=== PATIENT | female | born 1950 | race Caucasian/White ===

== ENCOUNTER 2019-06-19 18:05 | Emergency (ER) | payer BC ==
--- NOTE | 2019-06-19 18:13 | Emergency Department Record ---
History of Present Illness - General Stated Complaint: DIZZY,SHAKEY HEART CONDITION Time Seen by Provider: 06/19/19 18:06 Source: Patient Mode of Arrival: Ambulatory Limitations: No limitations - History of Present Illness Initial Comments: 68 yo female presents to ED for evaluation of feeling dizzy, lightheaded, weak all over. Patient report that her symptoms occurred just prior to arrival, reports similar symptoms with atrial fibrillation as well as intermittent hypoglycemic episodes, denies history of DM. Patient reports that she has not eaten much today, but did eat a candy bar just prior to arrival. Patient denies chest pain, difficulty in breathing, fevers, chills, or recent illness. MD Complaint: Dizziness Onset/Timin -: Minutes(s) Timing: Unsure Description: Sense of movement History of Same: Yes History of Trauma: Yes Severity: Moderate Improves With: Nothing Worsens With: Nothing Associated Symptoms: Denies other symptoms - [place] Coma Scale Eye Response: (4) Open spontaneously Motor Response: (6) Obeys commands Verbal Response: (5) Oriented [place] Total: 15 - Related Data Home Medications Medication Instructions Recorded Confirmed Last Taken Diphenhydramine HCl [Benadryl] 25 mg PO ASDIR PRN 06/19/19 06/19/19 Unknown Levothyroxine Sodium 50 mcg PO DAILY 06/19/19 06/19/19 06/19/19 Prednisone [Prednisone 1Mg] 1 mg PO DAILY 06/19/19 06/19/19 06/19/19 Allergies Allergy/AdvReac Type Severity Reaction Status Date / Time acetaminophen [From Vicodin] Allergy ANAPHYLAXIS Verified 06/19/19 18:35 clarithromycin [From Biaxin] Allergy PT UNSURE Verified 06/19/19 18:35 OF REACTION hydrocodone [From Vicodin] Allergy ANAPHYLAXIS Verified 06/19/19 18:35 insect venom Allergy ANAPHYLAXIS Verified 06/19/19 18:35 Iodinated Contrast Media Allergy ANAPHYLAXIS Verified 06/19/19 18:35 Latex, Natural Rubber Allergy ANAPHYLAXIS Verified 06/19/19 18:35 moxifloxacin [From Vigamox] Allergy ANAPHYLAXIS Verified 06/19/19 18:35 Penicillins Allergy RASH Verified 06/19/19 18:35 prochlorperazine Allergy ANAPHYLAXIS Verified 06/19/19 18:35 [From Compazine] shellfish derived Allergy ANAPHYLAXIS Verified 06/19/19 18:35 aspirin AdvReac HYPERSENSIT Verified 06/19/19 18:35 IVITY Beta-Blockers AdvReac PT UNSURE Verified 06/19/19 18:35 (Beta-Adrenergic Bloc OF REACTION naproxen AdvReac HYPERSENSIT Verified 06/19/19 18:35 IVITY warfarin AdvReac HYPERSENSIT Verified 06/19/19 18:35 IVITY Review of Systems Constitutional: Denies: Chills, Fever, Malaise, Night sweats Eyes: Denies: Eye discharge, Eye pain ENT: Denies: Congestion, Ear pain, Epistaxis Respiratory: Denies: Cough, Dyspnea Cardiovascular: Denies: Chest pain, Dyspnea on exertion, Edema Endocrine: Denies: Fatigue, Heat or cold intolerance Gastrointestinal: Denies: Abdominal pain, Nausea, Vomiting Genitourinary: Denies: Incontinence, Retention Musculoskeletal: Denies: Arthralgia, Back pain Skin: Denies: Bruising, Change in color Neurological: Reports: Vertigo. Denies: Abnormal gait, Confusion, Headache, Numbness, Tingling, Tremors Psychiatric: Denies: Anxiety Hematological/Lymphatic: Denies: Anemia, Blood Clots Physical Exam - General General Appearance: Alert, Oriented x3, Cooperative, Mild distress, Anxious Limitations: No limitations - Head Head exam: Atraumatic, Normocephalic, Normal inspection Head exam detail: negative: Abrasion, Contusion, Vargas's sign, General tenderness, Hematoma, Laceration - Eye Eye exam: Normal appearance. negative: Conjunctival injection, Periorbital swelling, Periorbital tenderness, Scleral icterus - ENT Ear exam: negative: Auricular hematoma, Auricular trauma Nasal Exam: negative: Active bleeding, Discharge, Dried blood, Foreign body Mouth exam: negative: Drooling, Laceration, Muffled voice, Tongue elevation - Neck Neck exam: Normal inspection. negative: Meningismus, Tenderness - Respiratory Respiratory exam: Normal lung sounds bilaterally. negative: Respiratory distress, Rhonchi, Stridor, Wheezes - Cardiovascular Cardiovascular Exam: Normal rhythm, Normal heart sounds, Tachycardia - GI/Abdominal GI/Abdominal exam: Soft. negative: Rebound, Rigid, Tenderness - Rectal Rectal exam: Deferred - exam: Deferred - Extremities Extremities exam: Normal inspection. negative: Pedal edema, Tenderness - Back Back exam: Denies: CVA tenderness (R), CVA tenderness (L) - Neurological Neurological exam: Alert, Normal gait, Oriented X3 - Psychiatric Psychiatric exam: Normal affect, Normal mood - Skin Skin exam: Normal color. negative: Abrasion Type of lesion: negative: abrasion Course - Reevaluation(s) Reevaluation #1: 06/19/19 18:12 EKG: Diffuse artifact present, Sinus tachycardia 109 Normal axis, normal intervals No acute ST-T wave changes present. Reevaluation #2: 06/19/19 18:41 Laboratory studies were reviewed and appear grossly unremarkable for an acute process. 06/19/19 19:27 Patient was reassessed and updated on all results. Pulse now in the 60's, reports that she is feeling much better. 500 mL D5 1/2 NS infusing currently for possible hypoglycemia. Will reassess when infusion has completed. Reevaluation #3: 06/19/19 20:26 Patient was reassessed and reports that she is feeling back to her baseline. Patient reports that her symptoms are likely the result of hypoglycemia. Patient's symptoms have resolved, and the patient appears stable for discharge at this time. Medical Decision Making - Lab Data Result diagrams: 06/19/19 18:10 06/19/19 18:10 Disposition Disposition: Discharge Clinical Impression: Hypoglycemic reaction Disposition: Home, Self-Care Condition: (2) Stable Instructions: Non-diabetic Hypoglycemia (ED) Additional Instructions: Return to ED if your symptoms worsen or if you have any concerns. Follow-up with your family doctor in 3-5 days as directed. Time of Disposition: 20:27 Quality - Quality Measures Quality Measures: N/A - Blood Pressure Screening Does Patient Have Any of the Following: Active Dx of HTN Blood Pressure Classification: Hypertensive Reading Systolic Measurement: 167 Diastolic Measurement: 95 Screening for High Blood Pressure: Patient Exclusion, Hx of HTN [G9744]
[2019-06-19] MEDS ORDERED: DEXTROSE 5 %-0.45 % NACL 1,000 ML IV PRN (18:17)
[2019-06-19 18:23] LABS: ABSOLUTE NEUTROPHIL COUNT 3.61; BASO % 0.2 % (0-6); EOS % 1.9 % (0-6); GRAN % 41.4 % (47-80); HEMATOCRIT 39.7 % (35.0-47.0); HEMOGLOBIN 12.9 gm/dl (11.6-16.0); LYMPH % 49.1 % (16-45); MEAN CELL VOLUME 95.2 fl (81-97); MEAN CORPUSCULAR HEMOGLOBIN 30.9 pg (27-33); MEAN CORPUSCULAR HGB CONC 32.5 g/dl (32-36); MONO % 7.4 % (0-9); PLATELET COUNT 278 K/uL (130-400); RED BLOOD COUNT 4.17 M/uL (3.80-5.40); RED CELL DISTRIBUTION WIDTH 13.4 % (11.5-14.5); WHITE BLOOD COUNT W/O DIFF 8.7 K/uL (4.2-12.2)
[2019-06-19 18:30] LABS: BLOOD UREA NITROGEN 15 mg/dL (8-23); CREATININE 0.8 mg/dL (0.5-0.9); EST GLOMERULAR FILTRATION RATE > 60 mL/min
[2019-06-19 18:31] LABS: TOTAL PROTEIN 7.1 g/dL (6.6-8.7)
[2019-06-19 18:33] LABS: GLUCOSE,RANDOM 94 mg/dL (74-109)
[2019-06-19 18:36] LABS: ALBUMIN 4.7 g/dL (4.0-5.0); ALKALINE PHOSPHATASE 55 U/L (35-104); ALT/SGPT 17 U/L (<33); AST/SGOT 21 U/L (10.0-35.0)
== END 2019-06-19 20:42 | disposition home or self-care (01) ==
LOC: ER 18:05 → EDBD 18:05 → ER 20:42
DX: E11.649 Type 2 diabetes mellitus with hypoglycemia without coma (principal); R42 Dizziness and giddiness; I48.91 Unspecified atrial fibrillation; I10 Essential (primary) hypertension; Z86.73 Personal history of transient ischemic attack (TIA), and cerebral infarction without residual deficits
CPT/HCPCS: 36416; 80053; 82948; 84484; 85025; 93005; 93010; 96365; 96366; 99284